=== PATIENT | female | born 1970 | race Hispanic/Latino ===

== ENCOUNTER 2019-03-24 01:27 | Emergency (ER) | payer OTHER ==
[2019-03-24] MEDS ORDERED: SODIUM CHLORIDE 0.9% 1000ML 1,000 ML IV ONE (01:28)
[2019-03-24 01:55] LABS: BASOPHILS % (AUTO) 0.5 % (0.0-5.0); EOSINOPHILS % (AUTO) 0.3 % (0.0-8.0); HEMATOCRIT 35.7 % (36-48); LYMPHOCYTES % (AUTO) 6.5 % (21.0-51.0); MEAN CORPUSCULAR HEMOGLOBIN 20.6 pg (27.0-33.0); MEAN CORPUSCULAR HGB CONC 28.9 g/dL (32.0-36.0); MEAN CORPUSCULAR VOLUME 71.4 fL (79-99); MONOCYTES % (AUTO) 5.6 % (3.0-13.0); NEUTROPHILS % (AUTO) 86.7 % (40.0-77.0); PLATELET COUNT (AUTO) 386 K/uL (130-400); RED CELL DISTRIBUTION WIDTH 17.5 % (11.0-15.5); WHITE BLOOD COUNT (AUTO) 13.5 K/uL (4.8-10.8)
[2019-03-24] MEDS ORDERED: ONDANSETRON HCL 4 MG/2 ML VIAL ONE (01:55)
[2019-03-24 02:07] LABS: CREATININE 0.6 mg/dL (0.5-1.5); POTASSIUM 3.7 mmol/L (3.5-5.1)
[2019-03-24 02:11] LABS: ALBUMIN 3.8 g/dL (3.5-5.0); BILIRUBIN,TOTAL 0.5 mg/dL (0.2-1.0); TOTAL PROTEIN, SERUM 8.2 g/dL (6.0-8.3)
[2019-03-24] MEDS ORDERED: KETOROLAC TROMETHAMINE 30MG/ML ONE (02:50)
[2019-03-24 03:26] LABS: APPEARANCE,URINE Clear (CLEAR); BILIRUBIN,URINE Negative (NEGATIVE); COLOR,URINE Dark Yellow (YELLOW); GLUCOSE, URINE (UA) Negative (NEGATIVE); KETONES,URINE >=80 mg/dL (NEGATIVE); LEUKOCYTE ESTERASE ,URINE Trace (NEGATIVE); NITRATE,URINE Negative (NEGATIVE); OCCULT BLOOD,URINE Negative (NEGATIVE); PROTEIN,URINE Negative (NEGATIVE)
[2019-03-24 03:32] LABS: BACTERIA,URINE None Seen /HPF (None Seen); MUCUS,URINE Rare LPF (None Seen); RBC,URINE None Seen /HPF (0-1); SQUAMOUS EPITHELIAL CELL,UR Rare /HPF (0-2); WBC,URINE 0-1 /HPF (0-1)
[2019-03-24] MEDS ORDERED: ZOSYN 3.375GM+NS 50ML 50 ML IV ONE (04:34)
== END 2019-03-24 05:43 | disposition short-term general hospital (02) ==
LOC: EDH 01:27
DX: K56.699 Other intestinal obstruction unspecified as to partial versus complete obstruction (principal); K63.89 Other specified diseases of intestine; Z98.890 Other specified postprocedural states
CPT/HCPCS: 36415; 74176; 80053; 81001; 82550; 83690; 84484; 85025; 93005; 96361; 96365; 96375; 99285; J1885; J2405; J2543; J7030

== ENCOUNTER 2019-04-24 11:47 | Inpatient (IN) | payer OTHER ==
[~2019-04-24] VITALS: Ht 157.5 cm; Wt 66.0 kg
[2019-04-24] MEDS: FAMOTIDINE/PF 20 MG/2 ML VIAL IV SCH (06:25)
[2019-04-24] MEDS: ZOSYN 3.375GM+NS 50ML 50 ML IV SCH (06:25)
[2019-04-24 12:35] LABS: BASOPHILS % (AUTO) 0.6 % (0.0-5.0); EOSINOPHILS % (AUTO) 0.1 % (0.0-8.0); HEMATOCRIT 34.5 % (36-48); LYMPHOCYTES % (AUTO) 7.4 % (21.0-51.0); MEAN CORPUSCULAR HEMOGLOBIN 20.9 pg (27.0-33.0); MEAN CORPUSCULAR HGB CONC 29.3 g/dL (32.0-36.0); MEAN CORPUSCULAR VOLUME 71.3 fL (79-99); MONOCYTES % (AUTO) 2.7 % (3.0-13.0); PLATELET COUNT (AUTO) 361 K/uL (130-400); RED BLOOD CELL COUNT(AUTO) 4.84 MIL/uL (4.00-5.50); RED CELL DISTRIBUTION WIDTH 17.7 % (11.0-15.5); WHITE BLOOD COUNT (AUTO) 9.5 K/uL (4.8-10.8)
[2019-04-24] MEDS ORDERED: ONDANSETRON HCL 4 MG/2 ML VIAL ONE (12:35)
[2019-04-24] MEDS ORDERED: MORPHINE SULFATE 4 MG/1ML SYG ONE ×2 (12:35→20:07)
[2019-04-24 12:39] LABS: CREATININE 0.6 mg/dL (0.5-1.5); POTASSIUM 3.2 mmol/L (3.5-5.1)
[2019-04-24 12:40] LABS: INR 0.92 (0.85-1.15); PARTIAL THROMBOPLASTIN TIME 26.3 SEC (26.3-35.5)
[2019-04-24 12:44] LABS: ALBUMIN 3.8 g/dL (3.5-5.0); BILIRUBIN,DIRECT 0.1 mg/dL (0.0-0.3); BILIRUBIN,TOTAL 0.3 mg/dL (0.2-1.0); TOTAL PROTEIN, SERUM 8.3 g/dL (6.0-8.3)
[2019-04-24 13:29] LABS: APPEARANCE,URINE CLOUDY (CLEAR); BILIRUBIN,URINE SMALL (NEGATIVE); COLOR,URINE YELLOW (YELLOW); GLUCOSE, URINE (UA) NEGATIVE (NEGATIVE); KETONES,URINE >=80 mg/dL (NEGATIVE); LEUKOCYTE ESTERASE ,URINE NEGATIVE (NEGATIVE); NITRATE,URINE NEGATIVE (NEGATIVE); OCCULT BLOOD,URINE TRACE-INTACT (NEGATIVE); PH,URINE 5.5 (5.0-8.0); PROTEIN,URINE NEGATIVE (NEGATIVE); UROBILINOGEN,URINE 0.2 mg/dL (0.2-1.0)
[2019-04-24 13:44] LABS: RBC,URINE None Seen /HPF (0-1); WBC,URINE None Seen /HPF (0-1)
[2019-04-24 13:45] LABS: AMORPHOUS SEDIMENT,UR Many /LPF (None Seen); BACTERIA,URINE None Seen /HPF (None Seen)
[2019-04-24] MEDS ORDERED: MORPHINE SULFATE 4 MG/1ML SYG IV PRN (19:00)
[2019-04-24] MEDS ORDERED: ACETAMINOPHEN 325 MG TAB PO PRN ×2 (19:00)
[2019-04-24] MEDS ORDERED: MAGNESIUM 2GM PREMIX 50ML 50 ML IV PRN (19:15)
[2019-04-25] MEDS ORDERED: ZOSYN 3.375GM+NS 50ML 50 ML IV ONE (01:40)
[2019-04-25] MEDS ORDERED: FAMOTIDINE/PF 20 MG/2 ML VIAL IV ONE (01:41)
[2019-04-25] MEDS ORDERED: SODIUM CHLORIDE 0.9% 1000ML 1,000 ML IV ONE (01:41)
[2019-04-25] MEDS ORDERED: ONDANSETRON HCL 4 MG/2 ML VIAL ONE (02:45)
[2019-04-25] MEDS ORDERED: MORPHINE SULFATE 4 MG/1ML SYG ONE (02:45)
[2019-04-25 04:46] VITALS: BP 122/74
[2019-04-25] MEDS: SODIUM CHLORIDE 0.9% 1000ML 1,000 ML IV SCH ×3 (04:55→21:30)
[2019-04-25 06:19] LABS: BASOPHILS % (AUTO) 0.8 % (0.0-5.0); EOSINOPHILS % (AUTO) 0.7 % (0.0-8.0); LYMPHOCYTES % (AUTO) 16.6 % (21.0-51.0); MEAN CORPUSCULAR HEMOGLOBIN 20.9 pg (27.0-33.0); MEAN CORPUSCULAR HGB CONC 28.3 g/dL (32.0-36.0); MEAN CORPUSCULAR VOLUME 73.9 fL (79-99); MONOCYTES % (AUTO) 8.8 % (3.0-13.0); NEUTROPHILS % (AUTO) 72.7 % (40.0-77.0); PLATELET COUNT (AUTO) 332 K/uL (130-400); RED BLOOD CELL COUNT(AUTO) 4.06 MIL/uL (4.00-5.50); RED CELL DISTRIBUTION WIDTH 17.8 % (11.0-15.5); WHITE BLOOD COUNT (AUTO) 8.3 K/uL (4.8-10.8)
[2019-04-25 06:36] LABS: ALBUMIN 3.1 g/dL (3.5-5.0); BILIRUBIN,TOTAL 0.3 mg/dL (0.2-1.0); CREATININE 0.6 mg/dL (0.5-1.5); TOTAL PROTEIN, SERUM 6.8 g/dL (6.0-8.3)
[2019-04-25 06:41] LABS: POTASSIUM 2.9 mmol/L (3.5-5.1)
[2019-04-25] MEDS: ZOSYN 3.375GM+NS 50ML 50 ML IV SCH ×4 (06:50→21:30)
[2019-04-25] MEDS: LIDOCAINE HCL-MPF 1% 2ML VIAL IV PRN ×3 (06:51→16:45)
[2019-04-25] MEDS: POTASSIUM CHLORIDE 20MEQ/100ML 100 ML IV PRN ×2 (06:51→15:15)
[2019-04-25 08:22] VITALS: BP 132/76
[2019-04-25] MEDS: FAMOTIDINE/PF 20 MG/2 ML VIAL IV SCH ×2 (09:25→21:28)
--- NOTE | 2019-04-25 11:04 | NUR ---
INITIAL Patient lives with 19 yr old daughter and two minor children. No home services or DME. 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 She reports she is able to complete ADL's and drives. PCP is [facility] in [place]. Pharmacy is [facility] located in [place] or [facility]. DCP is home. Patient has no insurance or benefits. She is not a [place] citizen but has been a legal resident since 2005 and has worked in the . Patient was provided with community resources for post hospitalization follow up. Patient was also provided with Good RX card for prescriptions and educated on [employer] $4 medication program and [employer] $5 medication program. Patient is being assisted by [employer] for financial matters. Addendum: 04/25/19 at 1109 by TAE MONSON SS Amended: Links added.
[2019-04-25 11:34] VITALS: BP 123/75
[2019-04-25 16:12] VITALS: BP 126/72
--- NOTE | 2019-04-25 16:35 | NUR ---
PATIENT WAS COMPLAINING ABOUT THE NG TUBE AND STATED THAT SHE WANTED IT OUT. I INSTRUCTED HER THAT WE MAY HAVE TO PUT IT BACK IN. SHE STATED THAT SHE CAN'T STAND IT AND SHE WANTS IT OUT NOW. SO I REMOVED NG TUBE PER PATIENT'S REQUEST. THERE WAS LITTLE TO KNOW RESIDUAL WITH NO NAUSEA NOTED AT THIS TIME. PATIENT STATED RELIEF ONCE TUBE WAS REMOVED AND C/O OF SORENESS TO THE BACK OF HER THROAT. Addendum: 04/25/19 at 1638 by DON HERNANDEZ RN RN Amended: Links added.
--- NOTE | 2019-04-25 20:00 | NUR ---
PT AWARE OF PROCEDURE TOMORROW. CONSENT SIGNED. NPO. ABLE TO AMBULATE. HAD BM. STATED HAVING INCREASED GAS. NO DISTRESS NOTED.
[2019-04-25 20:35] VITALS: BP_SYST 109; BP_SYST 124; BP_DIAS 55; BP_DIAS 73
[2019-04-26] VITALS (15 sets, daily range): BP systolic 94–125; BP diastolic 56–78
[2019-04-26] MEDS: SODIUM CHLORIDE 0.9% 1000ML 1,000 ML IV SCH ×3 (00:37→15:31)
[2019-04-26 04:55] LABS: BASOPHILS % (AUTO) 1.2 % (0.0-5.0); EOSINOPHILS % (AUTO) 3.7 % (0.0-8.0); HEMATOCRIT 28.7 % (36-48); LYMPHOCYTES % (AUTO) 23.5 % (21.0-51.0); MEAN CORPUSCULAR HEMOGLOBIN 21.1 pg (27.0-33.0); MEAN CORPUSCULAR HGB CONC 28.9 g/dL (32.0-36.0); MEAN CORPUSCULAR VOLUME 72.8 fL (79-99); NEUTROPHILS % (AUTO) 61.3 % (40.0-77.0); PLATELET COUNT (AUTO) 293 K/uL (130-400); RED BLOOD CELL COUNT(AUTO) 3.94 MIL/uL (4.00-5.50); RED CELL DISTRIBUTION WIDTH 17.9 % (11.0-15.5); WHITE BLOOD COUNT (AUTO) 6.8 K/uL (4.8-10.8)
[2019-04-26 05:10] LABS: ALBUMIN 2.9 g/dL (3.5-5.0); BILIRUBIN,TOTAL 0.4 mg/dL (0.2-1.0); CREATININE 0.6 mg/dL (0.5-1.5); POTASSIUM 3.7 mmol/L (3.5-5.1); TOTAL PROTEIN, SERUM 6.5 g/dL (6.0-8.3)
[2019-04-26] MEDS: ZOSYN 3.375GM+NS 50ML 50 ML IV SCH ×3 (05:17→20:14)
[2019-04-26] MEDS ORDERED: ENOXAPARIN SODIUM 30 MG/0.3 ML SQ SCH (09:00)
[2019-04-26] MEDS: FAMOTIDINE/PF 20 MG/2 ML VIAL IV SCH ×2 (09:20→20:14)
[2019-04-26] MEDS ORDERED: PROPOFOL 10 MG/ML 20ML VIAL IV ONE ×2 (12:54→13:00)
[2019-04-26] MEDS ORDERED: SIMETHICONE 40 MG/0.6 ML ML ONE (13:20)
--- NOTE | 2019-04-26 21:00 | NUR ---
PT AMBULATING. AWARE OF POSSIBLE PROCEDURE WITH WESTON. PT STATED CONCERN OVER NEW POSSIBLE CANCER DIAGNOSIS.
[2019-04-27 04:00] VITALS: BP 115/64
[2019-04-27 04:13] LABS: BASOPHILS % (AUTO) 1.1 % (0.0-5.0); HEMATOCRIT 28.8 % (36-48); MEAN CORPUSCULAR HEMOGLOBIN 21.6 pg (27.0-33.0); MEAN CORPUSCULAR HGB CONC 29.5 g/dL (32.0-36.0); MEAN CORPUSCULAR VOLUME 73.1 fL (79-99); MONOCYTES % (AUTO) 8.8 % (3.0-13.0); NEUTROPHILS % (AUTO) 64.8 % (40.0-77.0); PLATELET COUNT (AUTO) 305 K/uL (130-400); RED BLOOD CELL COUNT(AUTO) 3.94 MIL/uL (4.00-5.50); RED CELL DISTRIBUTION WIDTH 17.6 % (11.0-15.5)
[2019-04-27 04:51] LABS: BILIRUBIN,TOTAL 0.5 mg/dL (0.2-1.0); CREATININE 0.6 mg/dL (0.5-1.5); POTASSIUM 3.6 mmol/L (3.5-5.1); TOTAL PROTEIN, SERUM 6.7 g/dL (6.0-8.3)
[2019-04-27] MEDS: ZOSYN 3.375GM+NS 50ML 50 ML IV SCH ×3 (05:34→21:19)
[2019-04-27] MEDS: SODIUM CHLORIDE 0.9% 1000ML 1,000 ML IV SCH ×2 (06:26→16:55)
[2019-04-27 07:57] VITALS: BP 113/64
--- NOTE | 2019-04-27 08:40 | NUR ---
DR. WHITING IS MAKING HIS ROUNDS. SPOKE WITH DR. WESTON ABOUT FLEX SIGMOIDOSCOPY RESULTS.
[2019-04-27] MEDS: FAMOTIDINE/PF 20 MG/2 ML VIAL IV SCH ×2 (09:59→21:19)
--- NOTE | 2019-04-27 11:10 | NUR ---
DR. WESTON IS IN TO SEE PATIENT. SEE ORDERS FOR MEDS. PATIENT TO BE SCHEDULED FOR LOWER ANTERIOR RESECTION ON TUESDAY.
[2019-04-27 11:23] VITALS: BP 117/72
--- NOTE | 2019-04-27 15:06 | NUR ---
SBAR REPORT HANDED TO WILD LYNN.
--- NOTE | 2019-04-27 15:14 | NUR ---
PATIENT IS TRANSPORTED VIA WHEELCHAIR BY [facility]ER TO 427. ALL BELONGINGS WERE PACKED.
--- NOTE | 2019-04-27 15:20 | NUR ---
TRANSFER FROM 2ND PATIENT RECEIVED FROM 2ND FLOOR VIA WHEELCHAIR IN STABLE CONDITION. SHE HAS BEEN ORIENTED TO ROOM AND USE OF CALL LIGHT.
[2019-04-27 16:00] VITALS: BP 98/64
[2019-04-27 20:01] VITALS: BP 107/68
[2019-04-28 05:16] LABS: HEMATOCRIT 28.7 % (36-48); LYMPHOCYTES % (AUTO) 30.3 % (21.0-51.0); MEAN CORPUSCULAR HEMOGLOBIN 21.3 pg (27.0-33.0); MEAN CORPUSCULAR HGB CONC 29.3 g/dL (32.0-36.0); MEAN CORPUSCULAR VOLUME 72.7 fL (79-99); NEUTROPHILS % (AUTO) 51.4 % (40.0-77.0); PLATELET COUNT (AUTO) 299 K/uL (130-400); RED BLOOD CELL COUNT(AUTO) 3.95 MIL/uL (4.00-5.50); WHITE BLOOD COUNT (AUTO) 5.8 K/uL (4.8-10.8)
[2019-04-28 05:38] LABS: ALBUMIN 2.8 g/dL (3.5-5.0); BILIRUBIN,TOTAL 0.3 mg/dL (0.2-1.0); CREATININE 0.6 mg/dL (0.5-1.5); POTASSIUM 3.4 mmol/L (3.5-5.1); TOTAL PROTEIN, SERUM 6.4 g/dL (6.0-8.3)
[2019-04-28] MEDS: ZOSYN 3.375GM+NS 50ML 50 ML IV SCH ×3 (06:00→20:39)
[2019-04-28 07:03] VITALS: BP 108/64
[2019-04-28 08:00] VITALS: BP 118/86
[2019-04-28] MEDS: FAMOTIDINE/PF 20 MG/2 ML VIAL IV SCH ×2 (08:58→20:38)
[2019-04-28] MEDS: SODIUM CHLORIDE 0.9% 1000ML 1,000 ML IV SCH ×2 (08:58→13:20)
[2019-04-28 11:49] VITALS: BP 126/75
[2019-04-28 16:00] VITALS: BP 103/74
[2019-04-28 19:46] VITALS: BP 108/69
[2019-04-29] VITALS: BP 124/74
[2019-04-29 04:00] VITALS: BP 109/68
[2019-04-29] MEDS: ZOSYN 3.375GM+NS 50ML 50 ML IV SCH ×3 (05:41→21:58)
[2019-04-29] MEDS: SODIUM CHLORIDE 0.9% 1000ML 1,000 ML IV SCH ×2 (05:42→10:09)
[2019-04-29 08:00] VITALS: BP 130/82
[2019-04-29] MEDS: FAMOTIDINE/PF 20 MG/2 ML VIAL IV SCH ×2 (10:06→21:58)
[2019-04-29] MEDS: MAGNESIUM CITRATE 296 ML SOLUTION PO SCH (10:07)
[2019-04-29 11:31] VITALS: BP 106/74
--- NOTE | 2019-04-29 12:03 | NUR ---
CHART REVIEWED FOR BOWEL RESECTION TUESDAY PER NOTES Addendum: 04/29/19 at 1204 by LVIIER PICKENS RN CM Amended: Links added.
[2019-04-29] MEDS: METRONIDAZOLE 500 MG TABLET PO SCH ×3 (15:20→21:58)
[2019-04-29] MEDS: LEVOFLOXACIN 500 MG TABLET PO SCH ×3 (15:20→21:58)
[2019-04-29 16:41] VITALS: BP 133/76
[2019-04-29] MEDS: MORPHINE SULFATE 2 MG/ML 1ML SYG IVP PRN (16:51)
--- NOTE | 2019-04-29 19:45 | NUR ---
DR HICKMAN RETURN PAGE , INFORMED OF PATIENT HAVING NAUSEA AND VOMITING AND UNABLE TO TAKE GI PREP THAT WAS ORDERED PRIOR TO HER SURGERY TOMORROW . SHE ACKNOWLEDGED SHE IS AWARE AND NO NEW ORDERS RECEIVED.
[2019-04-29 20:19] VITALS: BP 147/78
[2019-04-30] VITALS (25 sets, daily range): BP systolic 112–131; BP diastolic 56–78
[2019-04-30] MEDS: ONDANSETRON HCL 4 MG/2 ML VIAL IV PRN ×2 (01:30→21:40)
[2019-04-30] MEDS: SODIUM CHLORIDE 0.9% 1000ML 1,000 ML IV SCH ×2 (04:55→14:55)
[2019-04-30 05:06] LABS: BASOPHILS % (AUTO) 0.6 % (0.0-5.0); HEMATOCRIT 29.7 % (36-48); LYMPHOCYTES % (AUTO) 9.8 % (21.0-51.0); MEAN CORPUSCULAR HEMOGLOBIN 21.2 pg (27.0-33.0); MEAN CORPUSCULAR HGB CONC 29.3 g/dL (32.0-36.0); MEAN CORPUSCULAR VOLUME 72.4 fL (79-99); MONOCYTES % (AUTO) 9.4 % (3.0-13.0); NEUTROPHILS % (AUTO) 79.8 % (40.0-77.0); PLATELET COUNT (AUTO) 312 K/uL (130-400); RED CELL DISTRIBUTION WIDTH 18.5 % (11.0-15.5); WHITE BLOOD COUNT (AUTO) 8.4 K/uL (4.8-10.8)
[2019-04-30 05:20] LABS: INR 1.08 (0.85-1.15); PARTIAL THROMBOPLASTIN TIME 27.4 SEC (26.3-35.5); PROTHROMBIN TIME 11.6 SEC (9.6-11.6)
[2019-04-30] MEDS: ZOSYN 3.375GM+NS 50ML 50 ML IV SCH ×3 (05:20→21:40)
[2019-04-30 05:23] LABS: CREATININE 0.6 mg/dL (0.5-1.5)
[2019-04-30 06:21] LABS: POTASSIUM 2.7 mmol/L (3.5-5.1)
--- NOTE | 2019-04-30 08:04 | NUR ---
PATIENT TAKEN TO HOLDING BY LEAH SOMMER FOR LOWER ANTERIOR BOWEL RESECTION BY DR. WESTON.
[2019-04-30] MEDS ORDERED: LIDOCAINE PF 2% 5ML ABBOJECT ONE ×2 (08:33→08:53)
[2019-04-30] MEDS ORDERED: ONDANSETRON HCL 4 MG/2 ML VIAL ONE ×2 (08:53→12:13)
[2019-04-30] MEDS ORDERED: PROPOFOL 10 MG/ML 20ML VIAL IV ONE (08:53)
[2019-04-30] MEDS ORDERED: ROCURONIUM 10MG/1ML SYR 10 MG/ML ML ONE (08:53)
[2019-04-30] MEDS ORDERED: FENTANYL CITRATE PF 50 MCG/1 ML 2ML VIAL ONE ×2 (08:58→11:59)
[2019-04-30] MEDS ORDERED: MIDAZOLAM HCL 1 MG/ML 2ML VIAL ONE (08:58)
[2019-04-30] MEDS: FAMOTIDINE/PF 20 MG/2 ML VIAL IV SCH ×2 (09:00→21:40)
[2019-04-30] MEDS: MAGNESIUM CITRATE 296 ML SOLUTION PO SCH (09:00)
[2019-04-30] MEDS ORDERED: FENTANYL CITRATE PF 50 MCG/1 ML 5ML AMP IV ONE (10:47)
[2019-04-30] MEDS ORDERED: ALBUMIN (HUMAN) 5% 250 ML IV ONE (11:56)
[2019-04-30] MEDS ORDERED: NEOSTIGMINE 5MG/5ML SYR IV ONE (12:12)
[2019-04-30] MEDS ORDERED: GLYCOPYRROLATE 1 MG/5 ML SYRINGE ONE (12:12)
[2019-04-30] MEDS ORDERED: DEXAMETHASONE SOD PHOSPHATE 10MG/ML 1ML VIAL ONE (12:13)
[2019-04-30 12:15] LABS: CREATININE 0.5 mg/dL (0.5-1.5)
[2019-04-30] MEDS ORDERED: KETOROLAC TROMETHAMINE 30MG/ML ONE (12:55)
[2019-04-30] MEDS ORDERED: HYDROMORPHONE 1 MG/1 ML AMP ONE (12:56)
--- NOTE | 2019-04-30 13:35 | NUR ---
RD NOTIFICATION Dx Large bowel obstruction. Diet: clear liquids, po intake is poor. Labs and meds reviewed. No significant weight changes noted. RD consults due to LOS X 6. S/P Sigmoidoscopy on 04/25, S/P Biopsy. RN reports N/V. Pending lower anterior bowel resection by Dr. Beal today. RD recommends to add Ensure Clear TID Monitor po intake and tolerance Monitor BM and labs Advance diet as tolerated when medically feasible to GI SOFT/BLAND RD will continue to monitor and follow up, thank you. Addendum: 04/30/19 at [address] Amended: Links added.
--- NOTE | 2019-04-30 13:50 | NUR ---
S/P LOWER ANTERIOR RESECTION. PT ALERT AND ORIENTED. REPORT RECEIVED FROM LEAH FRANKLIN. OBSERVED DRESSING TO MID-ABD DRY AND INTACT, COLOSTOMY TO LLQ NO DRAINAGE NOTED. VITAL SIGNS STABLE. WILL CONTINUE TO MONITOR. BED LOCKED AND LOW WITH CALL LIGHT IN REACH, SIDE RAILS X2.
[2019-04-30] MEDS: MORPHINE SULFATE 2 MG/ML 1ML SYG IVP PRN ×2 (15:45→21:40)
[2019-04-30] MEDS: LIDOCAINE HCL-MPF 1% 2ML VIAL IV PRN (15:46)
[2019-04-30] MEDS: POTASSIUM CHLORIDE 20MEQ/100ML 100 ML IV PRN (15:46)
[2019-04-30] MEDS ORDERED: COMPOUND IV MISC 1 EACH IVSOLN MISC PRN (16:30)
[2019-05-01 00:31] VITALS: BP 111/72
[2019-05-01] MEDS: SODIUM CHLORIDE 0.9% 1000ML 1,000 ML IV SCH ×4 (00:55→21:14)
[2019-05-01] MEDS ORDERED: SODIUM CHLORIDE 0.9% 250 ML IV ONE (03:22)
[2019-05-01] MEDS: ZOSYN 3.375GM+NS 50ML 50 ML IV SCH ×3 (03:32→21:14)
[2019-05-01] MEDS: MORPHINE SULFATE 2 MG/ML 1ML SYG IVP PRN ×3 (03:39→14:46)
[2019-05-01 03:55] VITALS: BP 107/70
[2019-05-01 04:32] LABS: BASOPHILS % (AUTO) 0.1 % (0.0-5.0); HEMATOCRIT 29.2 % (36-48); LYMPHOCYTES % (AUTO) 4.9 % (21.0-51.0); MEAN CORPUSCULAR HEMOGLOBIN 21.6 pg (27.0-33.0); MEAN CORPUSCULAR HGB CONC 29.8 g/dL (32.0-36.0); MEAN CORPUSCULAR VOLUME 72.5 fL (79-99); MONOCYTES % (AUTO) 6.4 % (3.0-13.0); NEUTROPHILS % (AUTO) 88.2 % (40.0-77.0); PLATELET COUNT (AUTO) 314 K/uL (130-400); RED BLOOD CELL COUNT(AUTO) 4.03 MIL/uL (4.00-5.50); RED CELL DISTRIBUTION WIDTH 18.6 % (11.0-15.5); WHITE BLOOD COUNT (AUTO) 12.3 K/uL (4.8-10.8)
[2019-05-01 05:02] LABS: ALBUMIN 2.5 g/dL (3.5-5.0); ASPARTATE AMINOTRANSFERASE 12 U/L (10-37); BILIRUBIN,TOTAL 0.7 mg/dL (0.2-1.0); CARBON DIOXIDE 20 mmol/L (21-32); CHLORIDE 107 mmol/L (101-111); CREATININE 0.5 mg/dL (0.5-1.5); GLOMERULAR FILTR. RATE CALC 140 mL/min (>60); GLUCOSE,RANDOM 130 mg/dL (70-105); POTASSIUM 3.2 mmol/L (3.5-5.1); SODIUM SERUM 140 mmol/L (136-145); TOTAL PROTEIN, SERUM 5.9 g/dL (6.0-8.3); UREA NITROGEN, BLOOD 6 mg/dL (7-18)
[2019-05-01 05:27] LABS: ALANINE AMINOTRANSFERASE < 6 U/L (12-78)
[2019-05-01 05:42] LABS: TOTAL IRON BINDING CAPACITY 212 mcg/dL (250-450)
[2019-05-01 06:04] LABS: % IRON SATURATION 2.3 % (22-44); IRON, SERUM < 5 mcg/dL (50-170)
[2019-05-01] MEDS: POTASSIUM CHLORIDE 20MEQ/100ML 100 ML IV PRN ×2 (06:42→12:04)
[2019-05-01 07:35] VITALS: BP 111/71
[2019-05-01] MEDS: FAMOTIDINE/PF 20 MG/2 ML VIAL IV SCH ×2 (08:16→21:14)
[2019-05-01] MEDS: IRON SUCROSE COMPLEX 100 MG in SODIUM CHLORIDE 0.9% 50 ML IV SCH (08:17)
[2019-05-01] MEDS: ENOXAPARIN SODIUM 40 MG/0.4 ML SYRINGE SQ SCH (08:17)
[2019-05-01 10:55] VITALS: BP 111/70
[2019-05-01] MEDS: LIDOCAINE HCL-MPF 1% 2ML VIAL IV PRN (12:04)
[2019-05-01 16:10] VITALS: BP 107/66
[2019-05-01 19:40] VITALS: BP 119/59
[2019-05-01] MEDS: DOCUSATE SODIUM 100 MG CAP PO SCH (21:14)
[2019-05-01] MEDS: BISACODYL 5 MG TABLET.DR PO SCH (21:14)
[2019-05-02] MEDS: MORPHINE SULFATE 2 MG/ML 1ML SYG IVP PRN ×2 (00:23→08:02)
[2019-05-02 00:30] VITALS: BP 109/53
[2019-05-02 04:21] VITALS: BP 103/71
[2019-05-02] MEDS: SODIUM CHLORIDE 0.9% 1000ML 1,000 ML IV SCH ×2 (04:56→16:12)
[2019-05-02] MEDS: ZOSYN 3.375GM+NS 50ML 50 ML IV SCH ×3 (04:56→21:19)
[2019-05-02 05:53] LABS: BASOPHILS % (AUTO) 0.3 % (0.0-5.0); EOSINOPHILS % (AUTO) 0.1 % (0.0-8.0); HEMATOCRIT 27.2 % (36-48); LYMPHOCYTES % (AUTO) 4.9 % (21.0-51.0); MEAN CORPUSCULAR HEMOGLOBIN 21.2 pg (27.0-33.0); MEAN CORPUSCULAR VOLUME 72.9 fL (79-99); PLATELET COUNT (AUTO) 281 K/uL (130-400); RED BLOOD CELL COUNT(AUTO) 3.73 MIL/uL (4.00-5.50); RED CELL DISTRIBUTION WIDTH 18.7 % (11.0-15.5); WHITE BLOOD COUNT (AUTO) 15.7 K/uL (4.8-10.8)
[2019-05-02 06:15] LABS: CREATININE 0.5 mg/dL (0.5-1.5); MAGNESIUM 1.9 mg/dL (1.80-2.40); PHOSPHORUS 1.7 mg/dL (2.5-4.9); POTASSIUM 3.6 mmol/L (3.5-5.1)
[2019-05-02 07:19] VITALS: BP 117/73
[2019-05-02] MEDS: ONDANSETRON HCL 4 MG/2 ML VIAL IV PRN ×2 (08:01→21:20)
[2019-05-02] MEDS: BISACODYL 5 MG TABLET.DR PO SCH ×2 (08:03→21:19)
[2019-05-02] MEDS: ENOXAPARIN SODIUM 40 MG/0.4 ML SYRINGE SQ SCH (08:03)
[2019-05-02] MEDS: DOCUSATE SODIUM 100 MG CAP PO SCH ×2 (08:03→21:19)
[2019-05-02] MEDS: FAMOTIDINE/PF 20 MG/2 ML VIAL IV SCH ×2 (08:11→21:00)
[2019-05-02] MEDS: IRON SUCROSE COMPLEX 100 MG in SODIUM CHLORIDE 0.9% 50 ML IV SCH (08:11)
[2019-05-02 10:50] VITALS: BP 122/70
[2019-05-02] MEDS ORDERED: MORPHINE SULFATE 2 MG/ML 1ML SYG IVP PRN (12:30)
[2019-05-02 12:43] LABS: APPEARANCE,URINE Clear (CLEAR); BILIRUBIN,URINE Negative (NEGATIVE); COLOR,URINE Yellow (YELLOW); GLUCOSE, URINE (UA) Negative (NEGATIVE); KETONES,URINE >=160 mg/dL (NEGATIVE); LEUKOCYTE ESTERASE ,URINE Negative (NEGATIVE); NITRATE,URINE Negative (NEGATIVE); OCCULT BLOOD,URINE Moderate (NEGATIVE); PROTEIN,URINE POS 2+ mg/dL (NEGATIVE)
[2019-05-02 13:00] LABS: BACTERIA,URINE Rare /HPF (None Seen); MUCUS,URINE Few LPF (None Seen); SQUAMOUS EPITHELIAL CELL,UR Few /HPF (0-2)
[2019-05-02 15:34] VITALS: BP 131/78
[2019-05-02] MEDS: LEVOFLOXACIN 750 MG/D5W 150 ML 150 ML IV SCH (18:12)
[2019-05-02 20:00] VITALS: BP 121/78
[2019-05-03] VITALS: BP 130/80
[2019-05-03] MEDS: PROMETHAZINE HCL 25 MG/ML 1ML AMPULE IM SCH (01:00)
[2019-05-03 04:00] VITALS: BP 133/82
[2019-05-03] MEDS: ONDANSETRON HCL 4 MG/2 ML VIAL IV PRN (04:55)
[2019-05-03] MEDS: ZOSYN 3.375GM+NS 50ML 50 ML IV SCH ×3 (04:55→22:20)
[2019-05-03] MEDS: SODIUM CHLORIDE 0.9% 1000ML 1,000 ML IV SCH ×2 (05:54→12:55)
[2019-05-03 08:49] VITALS: BP 128/75
[2019-05-03] MEDS: FAMOTIDINE/PF 20 MG/2 ML VIAL IV SCH ×2 (09:00→22:20)
[2019-05-03] MEDS: LEVOFLOXACIN 750 MG/D5W 150 ML 150 ML IV SCH (09:20)
[2019-05-03] MEDS: DOCUSATE SODIUM 100 MG CAP PO SCH ×2 (09:20→22:20)
[2019-05-03] MEDS: BISACODYL 5 MG TABLET.DR PO SCH ×2 (09:20→21:00)
[2019-05-03] MEDS: ENOXAPARIN SODIUM 40 MG/0.4 ML SYRINGE SQ SCH (09:22)
--- NOTE | 2019-05-03 10:38 | NUR ---
RD FOLLOW UP S/p exp. laparo. and sigmoid resection with ostomy creation. Diet: clear liquids, ensure clear TID. Pt is tolerating clear liquids, no passing gas, no BM yet. MD recommends to continue clear liquids at this time. Labs and meds reviewed. Skin is intact. RD recommends to continue current diet Advance as tolerated when medically feasible Monitor po intake, tolerance, BM, gas Monitor weight changes RD will continue to monitor and follow up, thank you.
[2019-05-03 11:56] VITALS: BP 129/79
[2019-05-03] MEDS: IRON SUCROSE COMPLEX 100 MG in SODIUM CHLORIDE 0.9% 50 ML IV SCH (13:19)
[2019-05-03 16:00] VITALS: BP 129/80
--- NOTE | 2019-05-03 16:35 | NUR ---
Received patient after transfer from . [facility]. Patient awake, alert, oriented x 3. Able to transfer with assistance, moves slowly and carefully guarded due to abdominal incision from recent surgery. Dressing to abdomen clean and dry. Colostomy with 250 mL of brown liquid stool with particles. Patient instructed to continue using incentive spirometer every hour to improve lung expansion. Patient verbalized understanding. Currently able to perform 700 mL on IS. Zosyn continued on PIV to LW, patent. Assisted patient to bathroom, patient on menses. Ambulation slow, and calculated. Bed low, locked. Call light within reach.
--- NOTE | 2019-05-03 16:43 | NUR ---
DENIED NAUSEA. MIDLINE INCISION WITH ROCÍO INTACT. CLEANED WITH NS, PATTED WITH BETADINE AND COVERED WITH 4X4 PER ORDER. WELL TOLERATED. LUQ COLOSTOMY INTACT, WITH LIQUID BROWN STOOL. SEEN BY DR. WESTON DURING ROUNDS, NO NEW ORDERS GIVEN. TRANSFERRED TO 316. ALL BELONGINGS TAKEN. CARE ENDORSED TO ONCOMING NURSE
--- NOTE | 2019-05-03 16:55 | NUR ---
PER DR. BENITEZ, CONTINUE ADOLFO
[2019-05-03 20:00] VITALS: BP 122/71
[2019-05-04] VITALS: BP 137/76
[2019-05-04] MEDS: PROMETHAZINE HCL 25 MG/ML 1ML AMPULE IM SCH (01:00)
[2019-05-04 04:00] VITALS: BP 133/80
[2019-05-04] MEDS: SODIUM CHLORIDE 0.9% 1000ML 1,000 ML IV SCH ×3 (05:39→18:05)
[2019-05-04] MEDS: ZOSYN 3.375GM+NS 50ML 50 ML IV SCH ×2 (05:39→14:09)
[2019-05-04 08:00] VITALS: BP 127/79
[2019-05-04] MEDS: IRON SUCROSE COMPLEX 100 MG in SODIUM CHLORIDE 0.9% 50 ML IV SCH (09:00)
[2019-05-04] MEDS: BISACODYL 5 MG TABLET.DR PO SCH (09:00)
[2019-05-04] MEDS: FAMOTIDINE/PF 20 MG/2 ML VIAL IV SCH ×2 (11:10→22:33)
[2019-05-04] MEDS: ENOXAPARIN SODIUM 40 MG/0.4 ML SYRINGE SQ SCH (11:10)
[2019-05-04] MEDS: LEVOFLOXACIN 750 MG/D5W 150 ML 150 ML IV SCH (11:10)
[2019-05-04] MEDS: DOCUSATE SODIUM 100 MG CAP PO SCH ×2 (11:10→22:33)
[2019-05-04 12:00] VITALS: BP 135/75
--- NOTE | 2019-05-04 13:56 | NUR ---
CM Note: Edgard colostomy bag and supplies approved CM spoke to Jen gomez/Ariela. Pt has approval, will deliver colostomy bag and supplies at pt's residence this week. Pt updated w/POC, safe to dc home via private car once MD clear. Primary nurse made aware to give pt 3-6 bags for now prior to DC. CM to cont to follow up.
[2019-05-04 16:00] VITALS: BP 118/72
[2019-05-04 20:00] VITALS: BP 143/75
[2019-05-05] VITALS: BP 135/80
[2019-05-05] MEDS: ONDANSETRON HCL 4 MG/2 ML VIAL IV PRN (03:21)
[2019-05-05] MEDS: SODIUM CHLORIDE 0.9% 1000ML 1,000 ML IV SCH ×2 (03:25→13:04)
[2019-05-05 04:00] VITALS: BP 133/76
[2019-05-05 06:32] LABS: HEMATOCRIT 28.5 % (36-48); MEAN CORPUSCULAR HEMOGLOBIN 21.3 pg (27.0-33.0); MEAN CORPUSCULAR HGB CONC 29.8 g/dL (32.0-36.0); MEAN CORPUSCULAR VOLUME 71.4 fL (79-99); PLATELET COUNT (AUTO) 441 K/uL (130-400); RED BLOOD CELL COUNT(AUTO) 3.99 MIL/uL (4.00-5.50); RED CELL DISTRIBUTION WIDTH 18.6 % (11.0-15.5); WHITE BLOOD COUNT (AUTO) 11.8 K/uL (4.8-10.8)
[2019-05-05 07:02] LABS: ALBUMIN 2.2 g/dL (3.5-5.0); BILIRUBIN,TOTAL 0.4 mg/dL (0.2-1.0); CREATININE 0.4 mg/dL (0.5-1.5); TOTAL PROTEIN, SERUM 6.4 g/dL (6.0-8.3)
[2019-05-05 07:39] LABS: POTASSIUM 2.1 mmol/L (3.5-5.1)
[2019-05-05] MEDS: LIDOCAINE HCL-MPF 1% 2ML VIAL IV PRN ×3 (07:45→14:01)
[2019-05-05] MEDS: POTASSIUM CHLORIDE 20MEQ/100ML 100 ML IV PRN ×5 (07:46→23:08)
[2019-05-05 08:00] VITALS: BP 135/83
[2019-05-05] MEDS ORDERED: POTASSIUM CHLORIDE 10% ELIXIR 20 MEQ/15 ML UDCUP PO SCH (08:30)
[2019-05-05] MEDS: DOCUSATE SODIUM 100 MG CAP PO SCH ×3 (09:00→21:47)
[2019-05-05] MEDS: LEVOFLOXACIN 750 MG/D5W 150 ML 150 ML IV SCH (09:20)
[2019-05-05] MEDS: ENOXAPARIN SODIUM 40 MG/0.4 ML SYRINGE SQ SCH (09:20)
[2019-05-05] MEDS: FAMOTIDINE/PF 20 MG/2 ML VIAL IV SCH ×2 (09:20→19:51)
[2019-05-05 12:00] VITALS: BP 122/77
[2019-05-05] MEDS: IRON SUCROSE COMPLEX 100 MG in SODIUM CHLORIDE 0.9% 50 ML IV SCH (13:04)
[2019-05-05 14:52] LABS: CREATININE 0.4 mg/dL (0.5-1.5)
[2019-05-05 14:59] LABS: POTASSIUM 2.4 mmol/L (3.5-5.1)
[2019-05-05 16:00] VITALS: BP 125/73
[2019-05-05 19:00] VITALS: BP 140/73
[2019-05-06] VITALS: BP 130/83
[2019-05-06] MEDS: SODIUM CHLORIDE 0.9% 1000ML 1,000 ML IV SCH ×3 (00:55→20:58)
[2019-05-06 04:00] VITALS: BP 131/75
[2019-05-06 06:21] LABS: CREATININE 0.4 mg/dL (0.5-1.5)
[2019-05-06 06:27] LABS: POTASSIUM 2.4 mmol/L (3.5-5.1)
[2019-05-06] MEDS: POTASSIUM CHLORIDE 20MEQ/100ML 100 ML IV PRN (06:31)
[2019-05-06] MEDS ORDERED: POTASSIUM CHLORIDE 20 MEQ ERTAB PO SCH ×3 (08:00→17:50)
[2019-05-06 08:45] VITALS: BP 131/75
[2019-05-06] MEDS: FAMOTIDINE/PF 20 MG/2 ML VIAL IV SCH ×2 (09:03→20:57)
[2019-05-06] MEDS: ENOXAPARIN SODIUM 40 MG/0.4 ML SYRINGE SQ SCH (09:04)
[2019-05-06] MEDS: DOCUSATE SODIUM 100 MG CAP PO SCH ×2 (09:05→20:57)
[2019-05-06] MEDS: LEVOFLOXACIN 750 MG/D5W 150 ML 150 ML IV SCH (09:10)
[2019-05-06] MEDS: IRON SUCROSE COMPLEX 100 MG in SODIUM CHLORIDE 0.9% 50 ML IV SCH (10:09)
[2019-05-06 12:04] VITALS: BP 129/75
[2019-05-06 16:04] LABS: CREATININE 0.5 mg/dL (0.5-1.5)
[2019-05-06 16:14] LABS: POTASSIUM 2.9 mmol/L (3.5-5.1)
[2019-05-06 17:55] VITALS: BP 115/75
[2019-05-06 19:00] VITALS: BP 121/70
--- NOTE | 2019-05-06 23:55 | NUR ---
POTASSIUM: 3.1 Informed on-call Jimmie Rosenberg NP with an order to give Potassium 40mEQ po now and place pt. on potassium po protocol.
[2019-05-07] VITALS: BP 119/74
[2019-05-07] MEDS ORDERED: POTASSIUM CHLORIDE 20 MEQ ERTAB PO ONE (00:04)
[2019-05-07] MEDS ORDERED: POTASSIUM CHLORIDE 20MEQ/100ML 100 ML IV PRN (00:15)
[2019-05-07] MEDS ORDERED: POTASSIUM CHLORIDE 20 MEQ ERTAB PO SCH ×3 (00:15→16:30)
[2019-05-07] MEDS ORDERED: LIDOCAINE HCL-MPF 1% 2ML VIAL IV PRN (00:15)
[2019-05-07] MEDS ORDERED: POTASSIUM CHLORIDE 10% ELIXIR 20 MEQ/15 ML UDCUP PO PRN (00:15)
[2019-05-07] MEDS ORDERED: POTASSIUM CHLORIDE 20 MEQ ERTAB PO PRN (00:15)
[2019-05-07 03:51] VITALS: BP 132/76
[2019-05-07 05:34] LABS: MAGNESIUM 2.1 mg/dL (1.80-2.40); POTASSIUM 3.3 mmol/L (3.5-5.1)
[2019-05-07] MEDS: SODIUM CHLORIDE 0.9% 1000ML 1,000 ML IV SCH ×2 (06:46→16:31)
[2019-05-07 08:00] VITALS: BP 124/74
[2019-05-07] MEDS: LEVOFLOXACIN 750 MG/D5W 150 ML 150 ML IV SCH (10:00)
[2019-05-07] MEDS: DOCUSATE SODIUM 100 MG CAP PO SCH (10:00)
[2019-05-07] MEDS: FAMOTIDINE/PF 20 MG/2 ML VIAL IV SCH (10:00)
[2019-05-07] MEDS: ENOXAPARIN SODIUM 40 MG/0.4 ML SYRINGE SQ SCH (10:01)
[2019-05-07] MEDS: IRON SUCROSE COMPLEX 100 MG in SODIUM CHLORIDE 0.9% 50 ML IV SCH (10:02)
[2019-05-07 11:30] VITALS: BP 109/67
--- NOTE | 2019-05-07 13:00 | NUR ---
Called Dr. Chung office to follow up. No new orders received from Dr. Chung at this time. Signed off.
--- NOTE | 2019-05-07 13:14 | NUR ---
Called Dr. Encinas's office to notify of patient's complaint of nausea, abdominal cramping and heartburn after eating full liquid diet. Left message with Keely at Dr. Encinas's office. Keely to speak with Dr. Encinas and get back regarding whether to proceed with discharge or hold.
--- NOTE | 2019-05-07 15:25 | NUR ---
RD FOLLOW UP Diet: GI soft/bland. PO intake 50-75%. Labs and meds reviewed. LBM: 05/06 (loose). S/p sigmoid resection. Pt reports nausea, abdominal pain and heart burn after eating full liquids, per RN. Nurse left message with MD whether to discharge or hold. RD recommends to change diet to clear liquids Recommend to re asses pt regarding po tolerance Advance diet as tolerated when medically feasible
[2019-05-07 16:00] VITALS: BP 115/74
[2019-05-07] MEDS ORDERED: LEVO750T46 PO (16:35)
[2019-05-07] MEDS ORDERED: FERR325T22 PO (16:40)
== END 2019-05-07 18:50 | disposition home or self-care (01) | DRG 329 ==
LOC: EDH 11:47 → EDHIP 11:48 → 2AH 04-25 02:27 → 4DH 04-27 15:26 → 3CH 05-03 16:32
PROVIDERS: ADMIT Internal Medicine; ATTEND Internal Medicine
PROC: 0DBN0ZZ Excision of Sigmoid Colon, Open Approach (ICD-10-PCS; principal; 2019-04-30 10:26)
PROC: 0D1N0Z4 Bypass Sigmoid Colon to Cutaneous, Open Approach (ICD-10-PCS; 2019-04-30 10:26)
DX: C18.7 Malignant neoplasm of sigmoid colon (principal); J18.9 Pneumonia, unspecified organism; K56.699 Other intestinal obstruction unspecified as to partial versus complete obstruction; C79.9 Secondary malignant neoplasm of unspecified site; E87.6 Hypokalemia; D63.0 Anemia in neoplastic disease; R50.82 Postprocedural fever; R53.81 Other malaise
CPT/HCPCS: 36415; 45331; 45335; 45378; 71046; 71250; 74018; 74176; 80048; 80053; 80076; 81001; 81025; 82378; 82550; 82948; 83540; 83550; 83690; 83735; 84100; 84132; 84145; 84484; 85025; 85027; 85610; 85730; 86316; 86850; 86900; 86901; 87088; 87486; 87581; 87633; 87798; 93005; 97039; A4344; A4606; A6250; G0378; J1100; J1170; J1650; J1756; J1885; J1956; J2001; J2250; J2270; J2405; J2543; J2704; J2710; J3010; J3475; J3480; J3490; J7030; J7120; P9045

== ENCOUNTER 2021-06-29 09:28 | Day surgery (SDC) | payer OTHER ==
[2021-06-29] VITALS (7 sets, daily range): BP systolic 107–118; BP diastolic 67–74
[~2021-06-29] VITALS: Ht 157.5 cm; Wt 74.4 kg
[2021-06-29] MEDS ORDERED: 0.9%NACL 1000ML 1,000 ML IV ONE (10:40)
[2021-06-29] MEDS ORDERED: MIDAZOLAM HCL 1 MG/ML 2ML VIAL ONE (12:19)
[2021-06-29] MEDS ORDERED: FENTANYL CITRATE PF 50 MCG/1 ML 2ML VIAL ONE (12:19)
[2021-06-29] MEDS ORDERED: LIDOCAINE PF 100MG/5ML (2%) SYRINGE 5ML ONE (12:26)
[2021-06-29] MEDS ORDERED: PROPOFOL 10 MG/ML 20ML VIAL IV ONE (12:26)
== END 2021-06-29 13:10 | disposition home or self-care (01) ==
LOC: ENDO 09:28 → DAH 09:28 → ENDO 13:10
PROVIDERS: ATTEND Internal Medicine Gastroenterology
DX: R10.811 Right upper quadrant abdominal tenderness (principal); R10.812 Left upper quadrant abdominal tenderness; K21.00 Gastro-esophageal reflux disease with esophagitis, without bleeding; K29.00 Acute gastritis without bleeding; Z79.01 Long term (current) use of anticoagulants; Z98.890 Other specified postprocedural states; Z98.891 History of uterine scar from previous surgery; Z82.49 Family history of ischemic heart disease and other diseases of the circulatory system; Z83.3 Family history of diabetes mellitus; Z85.038 Personal history of other malignant neoplasm of large intestine; Z90.49 Acquired absence of other specified parts of digestive tract
CPT/HCPCS: 43239; 81025; 87635; A4215 ×2; A4221; A4222; A4223; A4606; A4620; A4663; C9803; J2001; J2704; J7030; J2250; J3010

== ENCOUNTER 2022-12-21 09:24 | Day surgery (SDC) | payer OTHER ==
[2022-12-17 15:07] VITALS: BP 113/72; PULSE 68; RESP 19
[2022-12-21] VITALS (10 sets, daily range): BP systolic 103–113; BP diastolic 60–72; PULSE 64–70; RESP 16–20
[~2022-12-21] VITALS: Ht 157.5 cm; Wt 70.4 kg
[~2022-12-21 09:24] MED LIST: OMEP20TA20 PO
[2022-12-21] MEDS ORDERED: LIDOCAINE PF 100MG/5ML (2%) SYRINGE 5ML ONE (14:59)
[2022-12-21] MEDS ORDERED: PROPOFOL 10 MG/ML 20ML VIAL IV ONE (14:59)
== END 2022-12-21 16:05 | disposition home or self-care (01) ==
LOC: ENDO 09:24 → DAH 09:24 → ENDO 16:05
PROVIDERS: ATTEND Internal Medicine Gastroenterology
DX: Z08 Encounter for follow-up examination after completed treatment for malignant neoplasm (principal); K64.0 First degree hemorrhoids; K63.89 Other specified diseases of intestine; K21.9 Gastro-esophageal reflux disease without esophagitis; Z86.010 Personal history of colon polyps; Z79.01 Long term (current) use of anticoagulants; Z98.891 History of uterine scar from previous surgery; Z98.890 Other specified postprocedural states; Z85.038 Personal history of other malignant neoplasm of large intestine; Z86.16 Personal history of COVID-19; Z82.49 Family history of ischemic heart disease and other diseases of the circulatory system; Z83.3 Family history of diabetes mellitus; Z98.0 Intestinal bypass and anastomosis status
CPT/HCPCS: 81025; 88305; 45380; J2001; J2704; A4620; A4215; A7002; A4216; J7030; J3490